=== PATIENT | female | born 1990 | race Two or more races ===

== ENCOUNTER 2020-10-25 03:32 | Emergency (ER) | payer OTHER ==
[~2020-10-25] VITALS: Ht 149.9 cm; Wt 88.9 kg
== END 2020-10-25 06:21 | disposition home or self-care (01) ==
LOC: ER 03:32
DX: K21.9 Gastro-esophageal reflux disease without esophagitis (principal)

== ENCOUNTER → 2021-04-26 | Emergency (ER) | payer OTHER ==
[~2021-04-26] VITALS: Ht 149.9 cm; Wt 89.4 kg
== END | disposition left against medical advice (07) ==
LOC: ER 01:31
DX: Z53.20 Procedure and treatment not carried out because of patient's decision for unspecified reasons (principal)

== ENCOUNTER 2021-04-28 04:33 | Emergency (ER) | payer OTHER ==
[~2021-04-28] VITALS: Ht 149.9 cm; Wt 89.4 kg
== END 2021-04-28 11:39 | disposition home or self-care (01) ==
LOC: ER 04:33
DX: R51.9 Headache, unspecified (principal); H92.02 Otalgia, left ear

== ENCOUNTER 2021-07-06 18:18 | Emergency (ER) | payer OTHER ==
[~2021-07-06] VITALS: Ht 149.9 cm; Wt 86.6 kg
== END 2021-07-06 20:25 | disposition home or self-care (01) ==
LOC: ER 18:18
DX: T55.1X1A Toxic effect of detergents, accidental (unintentional), initial encounter (principal); Y92.098 Other place in other non-institutional residence as the place of occurrence of the external cause

== ENCOUNTER 2022-06-22 12:30 | Emergency (ER) | payer OTHER ==
[~2022-06-22] VITALS: Ht 149.9 cm; Wt 86.2 kg
== END 2022-06-22 15:32 | disposition home or self-care (01) ==
LOC: ER 12:30
DX: G43.909 Migraine, unspecified, not intractable, without status migrainosus (principal); Z91.013 Allergy to seafood

== ENCOUNTER 2022-11-21 12:50 | Emergency (ER) | payer OTHER ==
[~2022-11-21] VITALS: Ht 149.9 cm; Wt 76.2 kg
[2022-11-21] MEDS ORDERED: PEPCID AC20 MG PO (13:47)
[2022-11-21] MEDS ORDERED: DICLOFENAC SODI75 MG PO (17:34)
== END 2022-11-21 17:44 | disposition home or self-care (01) ==
LOC: ER 12:50
DX: R10.2 Pelvic and perineal pain (principal)

== ENCOUNTER 2022-12-27 19:24 | Emergency (ER) | payer OTHER ==
[~2022-12-27] VITALS: Ht 149.9 cm; Wt 90.7 kg
[~2022-12-27 19:24] MED LIST: DICLOFENAC SODI75 MG PO; PEPCID AC20 MG PO
[2022-12-27] MEDS ORDERED: DUI500 PO (21:54)
[2022-12-27] MEDS ORDERED: TUSNEL LIQUID178 ML PO (21:54)
[2022-12-27] MEDS ORDERED: IPRAT-ALBUT 0.5-3 ML IH (21:54)
[2022-12-27] MEDS ORDERED: DOLOGEN CAPLET1 EACH PO (21:54)
== END 2022-12-27 21:58 | disposition home or self-care (01) ==
LOC: ER 19:24
DX: J10.1 Influenza due to other identified influenza virus with other respiratory manifestations (principal); H66.92 Otitis media, unspecified, left ear; Z91.013 Allergy to seafood; Z20.822 Contact with and (suspected) exposure to COVID-19

== ENCOUNTER 2024-08-23 22:00 | Emergency (ER) | payer OTHER ==
[~2024-08-23] VITALS: Ht 149.9 cm; Wt 78.0 kg
[~2024-08-23 22:00] MED LIST changes: +DOLOGEN CAPLET1 EACH PO; +DUI500 PO; +IPRAT-ALBUT 0.5-3 ML IH; +TUSNEL LIQUID178 ML PO
[2024-08-24] MEDS ORDERED: KETOROLAC TROMETHAMINE 30 MG VIAL IV STA (02:26)
[2024-08-24 02:58] LABS: HEMOGLOBIN 14.4 g/dL (12.0-15.00); MEAN CELL VOLUME 85.8 fL (80.00-100.00); MEAN CORPUSCULAR HEMOGLOBIN 28.7 pg (27.00-32.0); MEAN CORPUSCULAR HGB CONC 33.4 g/dl (32.0-36.0); PLATELET COUNT 453 K/uL (150-450); RED BLOOD COUNT 5.02 M/uL (4.00-6.00); RED CELL DISTRIBUTION WIDTH 15.3 % (11.5-14.5)
[2024-08-24 03:21] LABS: URINE APPEARANCE Cloudy; URINE BILIRRUBIN Negative (NEGATIVE); URINE BLOOD Negative; URINE COLOR Yellow; URINE GLUCOSE Negative (NEGATIVE); URINE KETONE Negative (NEGATIVE); URINE LEUKOCYTE Negative; URINE NITRATE Negative; URINE PROTEIN Negative (NEGATIVE)
[2024-08-24 03:25] LABS: URINE EPITHELIAL CELLS 97.7 uL (0.0-38.8); URINE RBC 13.5 uL (0.0-20.8); URINE WBC 23.9 uL (0.0-23.2)
[2024-08-24 03:56] LABS: CALCIUM 9.2 mg/dL (8.5-10.1); CREATININE SERUM 0.61 mg/dL (0.55-1.02); POTASSIUM 4.55 mEq/L (3.5-5.1)
[2024-08-24 04:37] LABS: GFR 111.61
[2024-08-24] MEDS ORDERED: ESGIC 50-325-41 EACH PO (04:55)
== END 2024-08-24 04:58 ==
LOC: ER 22:02
PROVIDERS: General Practice
DX: R51.9 Headache, unspecified (principal); Z91.013 Allergy to seafood

== ENCOUNTER → 2025-03-01 | Emergency (ER) | payer OTHER ==
[~2025-03-01] VITALS: Ht 149.9 cm; Wt 81.6 kg
[~2025-03-01] MED LIST changes: +ESGIC 50-325-41 EACH PO
== END | disposition left against medical advice (07) ==
LOC: ER 00:09
DX: Z53.21 Procedure and treatment not carried out due to patient leaving prior to being seen by health care provider (principal)

== ENCOUNTER 2025-09-06 14:56 | Outpatient (CLI) | payer OTHER | END 2025-09-06 14:58 | disposition home or self-care (01) | LOC: SONOGRAMA 14:56 | PROVIDERS: ATTEND Pathology Anatomic Pathology & Clinical Pathology | DX: R59.0 Localized enlarged lymph nodes (principal); N63.20 Unspecified lump in the left breast, unspecified quadrant ==

== ENCOUNTER 2025-10-09 14:33 | Emergency (ER) | payer OTHER ==
[~2025-10-09] VITALS: Ht 149.9 cm; Wt 81.6 kg
[2025-10-09] MEDS ORDERED: CEFTRIAXONE SODIUM 1,000 MG VIAL IM ONE (16:45)
[2025-10-09] MEDS ORDERED: FAMOTIDINE/PF 20 MG in 0.9 % SODIUM CHLORIDE 8 ML IV PUSH STA (16:45)
[2025-10-09] MEDS ORDERED: DEXAMETHASONE SODIUM PHOSPHATE 4 MG/ML VIAL IM ONE (16:45)
[2025-10-09] MEDS ORDERED: KETOROLAC TROMETHAMINE 30 MG VIAL IM ONE (16:45)
[2025-10-09] MEDS ORDERED: GUAIFENESIN 600 MG TABLET.SA PO ONE (16:45)
[2025-10-09] MEDS ORDERED: KETOROLAC TROMETHAMINE 30 MG VIAL ONE (18:01)
[2025-10-09] MEDS ORDERED: DEXAMETHASONE SODIUM PHOSPHATE 4 MG/ML VIAL ONE (18:01)
[2025-10-09] MEDS ORDERED: FAMOTIDINE/PF 20 MG/2 ML VIAL ONE (18:02)
[2025-10-09] MEDS ORDERED: CEFTRIAXONE SODIUM 1,000 MG VIAL ONE (18:02)
[2025-10-09 18:44] LABS: BASO % 0.8 % (0.1-1.2); EOS # 0.07 (0.04-0.54); EOS % 1.1 % (0.7-7.0); LYMPH # 0.87 (1.18-3.74); LYMPH % 13.9 % (19.3-53.1); MEAN PLATELET VOLUME 9.30 fl (9.4-12.4); MONO # 0.50 (0.24-0.82); MONO % 8.0 % (4.7-12.5); NEUT # 4.73 (1.56-6.13); NEUT % 75.7 % (34.0-71.1); RED CELL DISTRIBUTION WIDTH 13.1 % (11.6-14.4)
[2025-10-09 19:24] LABS: ALT/SGPT 29.0 U/L (12-78); AST/SGOT 14.0 U/L (15-37); BILIRUBIN TOTAL 0.43 mg/dL (0.3-1.2); BUN CREA RATIO 12.0 (7.0-25.0); CREATININE SERUM 0.52 mg/dL (0.55-1.02); GFR 133.43; GLOBULINA 3.2 G/DL (2.4-3.5); GLUCOSE FASTING 96.0 mg/dL (65-100); OSMOLALITY SERUM 279.0 MOSM/KG (275-295)
[2025-10-09 19:48] LABS: COVID-19 AG NEGATIVE (NEGATIVE)
== END 2025-10-10 04:57 | disposition home or self-care (01) ==
LOC: ER 14:33
PROVIDERS: Student in an Organized Health Care Education/Training Program
DX: J06.9 Acute upper respiratory infection, unspecified (principal); Z91.013 Allergy to seafood; E16.1 Other hypoglycemia; Z20.822 Contact with and (suspected) exposure to COVID-19